=== PATIENT | female | born 1990 | race Caucasian/White ===

== ENCOUNTER 2021-03-02 09:07 | Outpatient (REF) | payer MEDICAID, SELFPAY ==
[2021-03-01 21:50] LABS: HCT 41.6 % (36.0-46.0); HGB 13.9 g/dL (11.2-15.7); MCHC 33.4 % (32.0-36.0); MCV 89.7 fL (80-95); Platelet Count 197 10^3/uL (130-400); RBC 4.64 10^6/uL (3.93-5.22); RDW 12.1 % (11.7-14.6); RDW-SD 39.4 fL; WBC 6.35 10^3/uL (4.4-10.8)
[2021-03-01 22:11] LABS: Hemoglobin A1C 5.1 % (<5.7)
[2021-03-01 22:12] LABS: Calculated LDL 107 mg/dL (<100); Cholesterol 174 mg/dL (<200); HDL Cholesterol 55 mg/dL (40-60); TSH (W/Ref FT4) 0.65 uIU/mL (0.36-3.74); Triglyceride 61 mg/dL (<150)
== END 2021-03-02 09:08 | disposition home or self-care (01) ==
LOC: NCHCN 09:07
PROVIDERS: Referring Provider Family Medicine; Visit Provider Family Medicine
DX: R53.83 Other fatigue (principal); Z13.220 Encounter for screening for lipoid disorders; Z83.49 Family history of other endocrine, nutritional and metabolic diseases; Z00.00 Encounter for general adult medical examination without abnormal findings
CPT/HCPCS: 80061; 85027; 83036; 84443